=== PATIENT | male | born 1975 | race Caucasian/White ===

== ENCOUNTER 2017-01-24 18:47 | Emergency (ER) | payer OTHER ==
[~2017-01-24] VITALS: Ht 170.1 cm; Wt 88.5 kg
[~2017-01-24 18:47] MED LIST: AMOXICILLIN500 M2 PO; ZYRTEC10 MG PO
[2017-01-24] MEDS ORDERED: ROBITUSSIN AC 110 ML PO (20:04)
[2017-01-24] MEDS ORDERED: FLONASE ALLERG9.9 ML NAS (20:04)
[2017-01-24] MEDS ORDERED: CLARITIN10 MG PO (20:04)
[2017-01-24] MEDS ORDERED: PREDNISONE10 MG PO (20:04)
== END 2017-01-24 22:28 | disposition home or self-care (01) ==
LOC: ED 18:47
DX: B34.9 Viral infection, unspecified (principal); F17.200 Nicotine dependence, unspecified, uncomplicated; R03.0 Elevated blood-pressure reading, without diagnosis of hypertension; Z88.6 Allergy status to analgesic agent

== ENCOUNTER 2017-07-14 21:06 | Emergency (ER) | payer OTHER ==
[~2017-07-14] VITALS: Ht 172.7 cm; Wt 81.6 kg
[~2017-07-14 21:06] MED LIST changes: +CLARITIN10 MG PO; +FLONASE ALLERG9.9 ML NAS; +PREDNISONE10 MG PO; +ROBITUSSIN AC 110 ML PO
[2017-07-14] MEDS ORDERED: CEPHALEXIN500 M1 PO (23:02)
== END 2017-07-14 22:53 | disposition home or self-care (01) ==
LOC: ED 21:06
DX: S61.402A Unspecified open wound of left hand, initial encounter (principal); S61.002A Unspecified open wound of left thumb without damage to nail, initial encounter; F17.200 Nicotine dependence, unspecified, uncomplicated; Z79.899 Other long term (current) drug therapy; Z88.6 Allergy status to analgesic agent; W31.0XXA Contact with mining and earth-drilling machinery, initial encounter; Y93.89 Activity, other specified; Y92.89 Other specified places as the place of occurrence of the external cause; Y99.9 Unspecified external cause status

== ENCOUNTER 2018-08-09 16:43 | Emergency (ER) | payer OTHER ==
[~2018-08-09] VITALS: Ht 170.1 cm; Wt 77.1 kg
[~2018-08-09 16:43] MED LIST changes: +CEPHALEXIN500 M1 PO
[2018-08-09] MEDS ORDERED: SEPTDS PO (17:01)
[2018-08-09] MEDS ORDERED: BACTROBAN CREAM15 GM PO (17:01)
== END 2018-08-09 17:10 | disposition home or self-care (01) ==
LOC: ED 16:43
DX: L02.413 Cutaneous abscess of right upper limb (principal); L98.499 Non-pressure chronic ulcer of skin of other sites with unspecified severity; Z88.6 Allergy status to analgesic agent; Z79.2 Long term (current) use of antibiotics; Z79.899 Other long term (current) drug therapy

== ENCOUNTER 2018-10-14 18:15 | Emergency (ER) | payer OTHER ==
[~2018-10-14] VITALS: Wt 81.6 kg
[~2018-10-14 18:15] MED LIST changes: +BACTROBAN CREAM15 GM PO; +SEPTDS PO
== END 2018-10-14 19:02 | disposition home or self-care (01) ==
LOC: ED 18:15
DX: K40.90 Unilateral inguinal hernia, without obstruction or gangrene, not specified as recurrent (principal); Z88.6 Allergy status to analgesic agent

== ENCOUNTER 2019-07-21 18:56 | Emergency (ER) | payer OTHER ==
[~2019-07-21] VITALS: Ht 170.1 cm; Wt 77.1 kg
[2019-07-21] MEDS ORDERED: SEPTDS PO (19:42)
== END 2019-07-21 19:56 | disposition home or self-care (01) ==
LOC: ED 18:56
DX: L02.414 Cutaneous abscess of left upper limb (principal); L97.829 Non-pressure chronic ulcer of other part of left lower leg with unspecified severity; L08.89 Other specified local infections of the skin and subcutaneous tissue; Z88.6 Allergy status to analgesic agent

== ENCOUNTER 2019-10-13 15:34 | Emergency (ER) | payer OTHER ==
[~2019-10-13] VITALS: Ht 170.1 cm; Wt 68.0 kg
== END 2019-10-13 17:12 | disposition home or self-care (01) ==
LOC: ED 15:34
DX: T15.02XA Foreign body in cornea, left eye, initial encounter (principal); Z88.6 Allergy status to analgesic agent; X58.XXXA Exposure to other specified factors, initial encounter; Y93.89 Activity, other specified; Y92.59 Other trade areas as the place of occurrence of the external cause; Y99.0 Civilian activity done for income or pay

== ENCOUNTER 2021-04-05 23:45 | Emergency (ER) | payer SELFPAY ==
[~2021-04-05] VITALS: Ht 170.1 cm
[2021-04-06 00:18] LABS: BASO % 0.3 % (0.0-1.0); LYMPH # 2.5 10*3/uL (1.3-4.4); LYMPH % 26.5 % (27.0-41.0); MEAN CELL VOLUME 82.1 fl (80.0-94.0); MEAN CORPUSCULAR HGB 26.9 pg (27.0-31.0); MEAN CORPUSCULAR HGB CONC 32.8 g/dl (33.0-37.0); MEAN PLATELET VOLUME 9.8 fl (9.6-12.3); MONO # 0.8 10*3/uL (0.1-1.0); MONO % 8.3 % (3.0-9.0); NEUT % 64.6 % (47.0-73.0); PLATELET COUNT AUTOMATED 238 10*3/uL (130-400); RED BLOOD COUNT 5.24 10*6/uL (4.50-5.90); RED CELL DISTRI WIDTH 13.2 % (0-14.5); WHITE BLOOD COUNT 9.3 10*3/uL (4.8-10.8)
[2021-04-06 00:25] LABS: BUN 13 mg/dl (7-24); CHLORIDE 106 mmol/L (98-107); CREATININE 1.06 mg/dL (0.70-1.30); POTASSIUM 3.7 mmol/L (3.5-5.1); SODIUM 140 mmol/L (136-145)
[2021-04-06] MEDS ORDERED: CEPHALEXIN500 M1 PO (01:11)
[2021-04-06] MEDS ORDERED: SEPTDS PO (01:11)
== END 2021-04-06 02:04 | disposition home or self-care (01) ==
LOC: ED 23:45
PROVIDERS: Emergency Medicine
DX: M79.89 Other specified soft tissue disorders (principal); Z88.2 Allergy status to sulfonamides

== ENCOUNTER 2021-12-14 00:05 | Emergency (ER) | payer SELFPAY ==
[~2021-12-14] VITALS: Ht 170.1 cm; Wt 69.9 kg
[2021-12-14 01:00] LABS: BASO % 0.3 % (0.0-1.0); HEMATOCRIT 46.9 % (42.0-52.0); LYMPH # 1.7 10*3/uL (1.3-4.4); LYMPH % 14.9 % (27.0-41.0); MEAN CELL VOLUME 80.4 fl (80.0-94.0); MEAN CORPUSCULAR HGB 26.9 pg (27.0-31.0); MEAN CORPUSCULAR HGB CONC 33.5 g/dl (33.0-37.0); MEAN PLATELET VOLUME 9.5 fl (9.6-12.3); MONO # 0.9 10*3/uL (0.1-1.0); MONO % 7.8 % (3.0-9.0); NEUT # 8.6 10*3/uL (2.3-7.9); NEUT % 76.7 % (47.0-73.0); PLATELET COUNT AUTOMATED 218 10*3/uL (130-400); RED BLOOD COUNT 5.83 10*6/uL (4.50-5.90); RED CELL DISTRI WIDTH 13.5 % (0-14.5); WHITE BLOOD COUNT 11.2 10*3/uL (4.8-10.8)
[2021-12-14 01:17] LABS: ALBUMIN 4.4 gm/dl (3.1-4.5); ALKALINE PHOSPHATASE 71 U/L (45-117); BUN 14 mg/dl (7-24); CHLORIDE 104 mmol/L (98-107); POTASSIUM 3.8 mmol/L (3.5-5.1); SGOT/AST 21 IU/L (3-35); SGPT/ALT 39 U/L (12-78); SODIUM 137 mmol/L (136-145); TOTAL PROTEIN 7.9 gm/dL (6.4-8.2)
== END 2021-12-14 05:05 | disposition short-term general hospital (02) ==
LOC: ED 00:05
PROVIDERS: Emergency Medicine
DX: N13.2 Hydronephrosis with renal and ureteral calculous obstruction (principal); Z88.8 Allergy status to other drugs, medicaments and biological substances

== ENCOUNTER 2023-02-01 12:46 | Emergency (ER) | payer SELFPAY ==
[~2023-02-01] VITALS: Ht 170.1 cm; Wt 74.8 kg
== END 2023-02-01 13:57 | disposition home or self-care (01) ==
LOC: ED 12:46
DX: T15.92XA Foreign body on external eye, part unspecified, left eye, initial encounter (principal); Z88.8 Allergy status to other drugs, medicaments and biological substances; W22.8XXA Striking against or struck by other objects, initial encounter; Y93.89 Activity, other specified; Y92.89 Other specified places as the place of occurrence of the external cause; Y99.8 Other external cause status

== ENCOUNTER 2023-03-20 09:24 | Inpatient (IN) | payer MEDICAID ==
[~2023-03-20] VITALS: Ht 170.2 cm; Wt 71.9 kg
[2023-03-20 09:43] VITALS: BP 149/87
[2023-03-20 10:08] LABS: BASO # 0.1 10*3/uL (0.0-0.1); BASO % 0.6 % (0.0-1.0); EOS % 0.1 % (1.0-4.0); HEMATOCRIT 51.5 % (42.0-52.0); LYMPH # 1.8 10*3/uL (1.3-4.4); LYMPH % 21.8 % (27.0-41.0); MEAN CELL VOLUME 84.8 fl (80.0-94.0); MEAN CORPUSCULAR HGB 27.3 pg (27.0-31.0); MEAN CORPUSCULAR HGB CONC 32.2 g/dl (33.0-37.0); MEAN PLATELET VOLUME 9.8 fl (9.6-12.3); MONO # 0.5 10*3/uL (0.1-1.0); MONO % 5.6 % (3.0-9.0); NEUT # 5.9 10*3/uL (2.3-7.9); NEUT % 71.7 % (47.0-73.0); PLATELET COUNT AUTOMATED 203 10*3/uL (130-400); RED BLOOD COUNT 6.07 10*6/uL (4.50-5.90); RED CELL DISTRI WIDTH 13.2 % (0-14.5); WHITE BLOOD COUNT 8.2 10*3/uL (4.8-10.8)
[2023-03-20 10:19] LABS: ACT PARTIAL THROMBO TIME 27.1 SECONDS (20.0-32.1)
[2023-03-20 10:52] LABS: ALKALINE PHOSPHATASE 78 U/L (46-116); BUN 10 mg/dl (9-23); CHLORIDE 104 mmol/L (98-107); LIPASE 42 U/L (12-53); POTASSIUM 3.9 mmol/L (3.4-5.1); SGPT/ALT 34 U/L (10-49); TOTAL PROTEIN 7.5 gm/dL (6.0-8.0)
[2023-03-20 13:00] VITALS: BP 134/80
[2023-03-20 13:06] LABS: BILIRUBIN Negative (Negative); BLOOD Negative (Negative); CLARITY Clear (Clear); COLOR Yellow (Yellow); GLUCOSE Negative (Negative); KETONE Negative (Negative); LEUKO ESTERASE Negative (Negative); NITRITE Negative (Negative); UROBILINOGEN 0.2 E.U./dl (0.0-1.0)
[2023-03-20 13:13] LABS: URINE AMPHETAMINES Positive (1000ng/ml); URINE BARBITURATES Negative (200ng/ml); URINE BENZODIAZEPINES Negative (200ng/ml); URINE CANNABINOIDS (THC) Positive (50ng/ml); URINE COCAINE Negative (300ng/ml); URINE METHADONE Negative (300ng/ml); URINE OPIATES Negative (300ng/ml); URINE PHENCYCLIDINE Negative (25ng/ml)
[2023-03-20 13:44] LABS: RBC 0-2 rbc/hpf (0-2)
[2023-03-20 13:45] VITALS: BP 142/92
[2023-03-20 20:00] VITALS: BP 118/67
[2023-03-21] VITALS: BP 126/86
[2023-03-21 08:00] VITALS: BP 114/70
[2023-03-21 12:00] VITALS: BP 141/77
[2023-03-21 16:00] VITALS: BP 133/88
[2023-03-21 20:00] VITALS: BP 104/74
[2023-03-22] VITALS: BP 131/65
[2023-03-22 06:24] LABS: BASO # 0.1 10*3/uL (0.0-0.1); BASO % 0.6 % (0.0-1.0); HEMATOCRIT 47.1 % (42.0-52.0); LYMPH # 2.7 10*3/uL (1.3-4.4); MEAN CELL VOLUME 84.6 fl (80.0-94.0); MEAN CORPUSCULAR HGB CONC 33.1 g/dl (33.0-37.0); MEAN PLATELET VOLUME 9.8 fl (9.6-12.3); MONO # 0.8 10*3/uL (0.1-1.0); NEUT # 5.1 10*3/uL (2.3-7.9); NEUT % 58.9 % (47.0-73.0); PLATELET COUNT AUTOMATED 204 10*3/uL (130-400); RED BLOOD COUNT 5.57 10*6/uL (4.50-5.90); RED CELL DISTRI WIDTH 13.2 % (0-14.5); WHITE BLOOD COUNT 8.6 10*3/uL (4.8-10.8)
[2023-03-22 06:46] LABS: BUN 13 mg/dl (9-23); CHLORIDE 106 mmol/L (98-107); POTASSIUM 4.3 mmol/L (3.4-5.1)
[2023-03-22 08:00] VITALS: BP 129/89
[2023-03-22 12:00] VITALS: BP 134/75
== END 2023-03-22 12:45 | disposition left against medical advice (07) | DRG 770 ==
LOC: ED 09:24 → 4E 09:48 → EDHOLD 09:48 → 4E 12:50
PROVIDERS: Emergency Medicine; Student in an Organized Health Care Education/Training Program; ADMIT Internal Medicine; ATTEND Internal Medicine
DX: F15.23 Other stimulant dependence with withdrawal (principal); F41.9 Anxiety disorder, unspecified; G89.4 Chronic pain syndrome; Z53.29 Procedure and treatment not carried out because of patient's decision for other reasons; R73.9 Hyperglycemia, unspecified; Z79.899 Other long term (current) drug therapy; F19.90 Other psychoactive substance use, unspecified, uncomplicated

== ENCOUNTER 2023-10-19 04:26 | Emergency (ER) | payer MEDICAID ==
[~2023-10-19] VITALS: Ht 170.1 cm; Wt 88.5 kg
[2023-10-19] MEDS ORDERED: HYDR25T PO (04:53)
[2023-10-19] MEDS ORDERED: LISINOPRIL20 MG PO (04:54)
[2023-10-19 05:32] LABS: ALKALINE PHOSPHATASE 55 U/L (46-116); BUN 13 mg/dl (9-23); CHLORIDE 107 mmol/L (98-107); LIPASE 38 U/L (12-53); SGPT/ALT 92 U/L (5-49); TOTAL PROTEIN 6.6 gm/dL (6.0-8.0)
[2023-10-19 06:15] LABS: BASO # 0.1 10*3/uL (0.0-0.1); BASO % 0.9 % (0.0-1.0); EOS # 0.1 10*3/uL (0.0-0.4); EOS % 1.7 % (1.0-4.0); HEMATOCRIT 41.8 % (42.0-52.0); LYMPH # 2.2 10*3/uL (1.3-4.4); LYMPH % 37.7 % (27.0-41.0); MEAN CELL VOLUME 84.6 fl (80.0-94.0); MEAN CORPUSCULAR HGB 27.7 pg (27.0-31.0); MEAN CORPUSCULAR HGB CONC 32.8 g/dl (33.0-37.0); MEAN PLATELET VOLUME 10.1 fl (9.6-12.3); MONO # 0.7 10*3/uL (0.1-1.0); MONO % 12.2 % (3.0-9.0); NEUT # 2.7 10*3/uL (2.3-7.9); PLATELET COUNT AUTOMATED 198 10*3/uL (130-400); RED BLOOD COUNT 4.94 10*6/uL (4.50-5.90); RED CELL DISTRI WIDTH 13.1 % (0-14.5); WHITE BLOOD COUNT 5.8 10*3/uL (4.8-10.8)
[2023-10-19] MEDS ORDERED: COZAAR25 M1 PO (06:22)
== END 2023-10-19 06:50 | disposition home or self-care (01) ==
LOC: ED 04:26
PROVIDERS: Internal Medicine
DX: R05.9 Cough, unspecified (principal); R07.0 Pain in throat; T46.4X5A Adverse effect of angiotensin-converting-enzyme inhibitors, initial encounter; I10 Essential (primary) hypertension; F32.A Depression, unspecified; Z88.8 Allergy status to other drugs, medicaments and biological substances; Z98.890 Other specified postprocedural states; Y92.89 Other specified places as the place of occurrence of the external cause

== ENCOUNTER 2024-05-30 10:36 | Emergency (ER) | payer MEDICAID ==
[~2024-05-30] VITALS: Ht 170.1 cm; Wt 88.5 kg
[~2024-05-30 10:36] MED LIST changes: +COZAAR25 M1 PO; +HYDR25T PO; +LISINOPRIL20 MG PO
[2024-05-30] MEDS ORDERED: AMLODIPINE BESYL5 MG PO (10:51)
[2024-05-30] MEDS ORDERED: SODIUM CHLORIDE 0.9% 1,000 ML IV ONE (11:15)
[2024-05-30 11:34] LABS: BASO # 0.1 10*3/uL (0.0-0.1); BASO % 0.9 % (0.0-1.0); EOS # 0.2 10*3/uL (0.0-0.4); EOS % 2.3 % (1.0-4.0); HEMATOCRIT 47.6 % (42.0-52.0); LYMPH # 2.3 10*3/uL (1.3-4.4); LYMPH % 35.3 % (27.0-41.0); MEAN CELL VOLUME 80.3 fl (80.0-94.0); MEAN CORPUSCULAR HGB 27.7 pg (27.0-31.0); MEAN CORPUSCULAR HGB CONC 34.5 g/dl (33.0-37.0); MEAN PLATELET VOLUME 10.9 fl (9.6-12.3); MONO # 0.6 10*3/uL (0.1-1.0); MONO % 8.4 % (3.0-9.0); NEUT # 3.4 10*3/uL (2.3-7.9); NEUT % 52.5 % (47.0-73.0); PLATELET COUNT AUTOMATED 173 10*3/uL (130-400); RED BLOOD COUNT 5.93 10*6/uL (4.50-5.90); RED CELL DISTRI WIDTH 12.7 % (0-14.5); WHITE BLOOD COUNT 6.5 10*3/uL (4.8-10.8)
[2024-05-30 11:59] LABS: ALKALINE PHOSPHATASE 108 U/L (46-116); BUN 13 mg/dl (9-23); CHLORIDE 100 mmol/L (98-107); LIPASE 92 U/L (12-53); POTASSIUM 3.7 mmol/L (3.4-5.1); SGPT/ALT 125 U/L (5-49); TOTAL PROTEIN 7.3 gm/dL (6.0-8.0)
[2024-05-30] MEDS ORDERED: METFORMIN HYDR500 MG PO (12:15)
== END 2024-05-30 13:29 | disposition home or self-care (01) ==
LOC: ED 10:36
PROVIDERS: Emergency Medicine
DX: E11.65 Type 2 diabetes mellitus with hyperglycemia (principal); R51.9 Headache, unspecified; H53.8 Other visual disturbances; R53.1 Weakness; R35.89 Other polyuria; Z88.6 Allergy status to analgesic agent; Z79.899 Other long term (current) drug therapy; Z98.890 Other specified postprocedural states

== ENCOUNTER 2024-05-30 16:43 | Inpatient (IN) | payer MEDICAID ==
[~2024-05-30] VITALS: Ht 170.1 cm; Wt 82.3 kg
[2024-05-30 16:00] VITALS: BP 126/59
[~2024-05-30 16:43] MED LIST changes: +AMLODIPINE BESYL5 MG PO; +METFORMIN HYDR500 MG PO
[2024-05-30 16:59] VITALS: BP 132/88
[2024-05-30 17:58] LABS: BUN 15 mg/dl (9-23); CHLORIDE 100 mmol/L (98-107); POTASSIUM 3.7 mmol/L (3.4-5.1)
[2024-05-30] MEDS ORDERED: SODIUM CHLORIDE 0.9% 1,000 ML IV ONE ×2 (18:20→21:15)
[2024-05-30] MEDS ORDERED: INSULIN REGULAR, HUMAN 1 UNIT/0.01 ML IV ONE (18:20)
[2024-05-30] MEDS ORDERED: ACETAMINOPHEN 650 MG SUPP R PRN (21:10)
[2024-05-30] MEDS ORDERED: ACETAMINOPHEN 325 MG TAB PO PRN (21:10)
[2024-05-30] MEDS ORDERED: BISACODYL 5 MG TAB PO PRN (21:10)
[2024-05-30] MEDS ORDERED: TEMAZEPAM 15 MG CAP PO PRN (21:10)
[2024-05-30] MEDS ORDERED: Ondansetron Hydrochloride 4 MG/2 ML VIAL IV PRN (21:10)
[2024-05-30] MEDS ORDERED: MORPHINE Sulfate 2 MG/ML SYR IV PRN (21:10)
[2024-05-30] MEDS ORDERED: Acetaminophen/Hydrocodone 5 MG/325 MG TABLET PO PRN (21:10)
[2024-05-30] MEDS ORDERED: BISACODYL 10 MG SUPP R PRN (21:10)
[2024-05-30] MEDS ORDERED: Magnesium Hydroxide 30 ML UDC PO PRN (21:10)
[2024-05-30] MEDS ORDERED: DEXTROSE 10 % IN WATER 250 ML IV PRN (21:15)
[2024-05-30] MEDS ORDERED: INSULIN LISPRO 1 UNIT/0.01 ML SQ SCH (22:00)
[2024-05-30] MEDS ORDERED: Insulin Glargine, Recombinan 1 UNIT/0.01 ML SC SCH (22:00)
[2024-05-30 23:58] VITALS: BP 135/72
[2024-05-31 05:48] VITALS: BP 107/72
[2024-05-31 06:11] LABS: ALKALINE PHOSPHATASE 76 U/L (46-116); BUN 11 mg/dl (9-23); CHLORIDE 107 mmol/L (98-107); CHOLESTEROL 135 mg/dL (<200); FREE T4 1.35 ng/dl (0.89-1.76); POTASSIUM 3.5 mmol/L (3.4-5.1); SGPT/ALT 97 U/L (5-49); TOTAL PROTEIN 5.7 gm/dL (6.0-8.0); TRIGLYCERIDES 411 mg/dl (<150)
[2024-05-31 06:14] LABS: ACT PARTIAL THROMBO TIME 24.2 SECONDS (20.0-32.1)
[2024-05-31 06:31] LABS: BASO % 0.5 % (0.0-1.0); EOS # 0.2 10*3/uL (0.0-0.4); EOS % 2.4 % (1.0-4.0); HEMATOCRIT 41.4 % (42.0-52.0); LYMPH # 2.6 10*3/uL (1.3-4.4); LYMPH % 41.8 % (27.0-41.0); MEAN CELL VOLUME 83.8 fl (80.0-94.0); MEAN CORPUSCULAR HGB 27.9 pg (27.0-31.0); MEAN CORPUSCULAR HGB CONC 33.3 g/dl (33.0-37.0); MEAN PLATELET VOLUME 10.8 fl (9.6-12.3); MONO # 0.5 10*3/uL (0.1-1.0); MONO % 8.1 % (3.0-9.0); NEUT % 46.7 % (47.0-73.0); PLATELET COUNT AUTOMATED 140 10*3/uL (130-400); RED BLOOD COUNT 4.94 10*6/uL (4.50-5.90); WHITE BLOOD COUNT 6.3 10*3/uL (4.8-10.8)
[2024-05-31 08:53] LABS: VITAMIN D, 25-HYDROXY 34.2 ng/mL (30-100)
[2024-05-31] MEDS ORDERED: Enoxaparin Sodium 40 MG/0.4 ML SYR SC SCH (10:00)
[2024-05-31 12:15] LABS: BILIRUBIN Negative (Negative); BLOOD Negative (Negative); CLARITY Clear (Clear); COLOR Yellow (Yellow); GLUCOSE 3+ (Negative); KETONE Trace (Negative); LEUKO ESTERASE Negative (Negative); NITRITE Negative (Negative); PH 6.5 (4.5-8.0); UROBILINOGEN 0.2 E.U./dl (0.0-1.0)
[2024-05-31 12:41] LABS: EPITHELIAL CELLS 0-2; WBC 0-2 wbc/hpf (0-5)
[2024-06-01 06:40] LABS: BASO % 0.7 % (0.0-1.0); EOS # 0.1 10*3/uL (0.0-0.4); EOS % 1.1 % (1.0-4.0); HEMATOCRIT 42.8 % (42.0-52.0); LYMPH # 2.2 10*3/uL (1.3-4.4); LYMPH % 39.3 % (27.0-41.0); MEAN CELL VOLUME 83.1 fl (80.0-94.0); MEAN CORPUSCULAR HGB 27.4 pg (27.0-31.0); MEAN CORPUSCULAR HGB CONC 32.9 g/dl (33.0-37.0); MEAN PLATELET VOLUME 11.1 fl (9.6-12.3); MONO # 0.6 10*3/uL (0.1-1.0); MONO % 10.2 % (3.0-9.0); NEUT # 2.7 10*3/uL (2.3-7.9); PLATELET COUNT AUTOMATED 143 10*3/uL (130-400); RED BLOOD COUNT 5.15 10*6/uL (4.50-5.90); RED CELL DISTRI WIDTH 12.9 % (0-14.5); WHITE BLOOD COUNT 5.7 10*3/uL (4.8-10.8)
[2024-06-01 07:08] LABS: ALKALINE PHOSPHATASE 76 U/L (46-116); BUN 10 mg/dl (9-23); CHLORIDE 106 mmol/L (98-107); POTASSIUM 3.5 mmol/L (3.4-5.1); SGPT/ALT 118 U/L (5-49); TOTAL PROTEIN 6.2 gm/dL (6.0-8.0)
[2024-06-01 08:00] VITALS: BP 114/72
[2024-06-01] MEDS ORDERED: ATORVASTATIN CALCIUM 40 MG TABLET PO SCH (10:00)
[2024-06-01] MEDS ORDERED: Fish Oil 1,000 MG CAP PO SCH (10:00)
[2024-06-01] MEDS ORDERED: SODIUM CHLORIDE 0.9% 1,000 ML IV ONE (11:40)
[2024-06-01 12:00] VITALS: BP 123/80
[2024-06-01 16:00] VITALS: BP 126/59
[2024-06-01 20:30] VITALS: BP 129/86
[2024-06-01 21:30] VITALS: BP 136/98
[2024-06-01] MEDS ORDERED: Insulin Glargine, Recombinan 1 UNIT/0.01 ML SC SCH (22:00)
[2024-06-02] VITALS: BP 137/93
[2024-06-02 04:42] LABS: ALKALINE PHOSPHATASE 72 U/L (46-116); BUN 10 mg/dl (9-23); CHLORIDE 106 mmol/L (98-107); POTASSIUM 3.5 mmol/L (3.4-5.1); SGPT/ALT 160 U/L (5-49); TOTAL PROTEIN 6.3 gm/dL (6.0-8.0)
[2024-06-02 08:00] VITALS: BP 128/78
[2024-06-02] MEDS ORDERED: Humalog SQ (08:06)
[2024-06-02] MEDS ORDERED: LANTUS100 UNIT/1 SC (08:06)
[2024-06-02] MEDS ORDERED: HUMALOG100 UNIT/1 SQ (08:06)
[2024-06-02] MEDS ORDERED: amLODIPine besylate 5 MG TAB PO SCH (10:00)
[2024-06-03 05:07] LABS: HBSAG Negative (Negative); HEP B CORE AB, IGM Negative (Negative); HEPATITIS C ANTIBODY Non Reactive (Non Reactive)
== END 2024-06-02 09:20 | disposition home or self-care (01) | DRG 420 ==
LOC: ED 16:43 → EDHOLD 18:27 → 4E 06-01 10:57 → EDHOLD 06-01 10:57 → 4E 06-01 10:57
PROVIDERS: Internal Medicine; Physician Assistant Medical; Student in an Organized Health Care Education/Training Program; ADMIT Student in an Organized Health Care Education/Training Program; ATTEND Student in an Organized Health Care Education/Training Program
DX: E11.65 Type 2 diabetes mellitus with hyperglycemia (principal); E87.1 Hypo-osmolality and hyponatremia; E44.0 Moderate protein-calorie malnutrition; D64.9 Anemia, unspecified; I10 Essential (primary) hypertension; G44.201 Tension-type headache, unspecified, intractable; F17.210 Nicotine dependence, cigarettes, uncomplicated; Z79.899 Other long term (current) drug therapy; Z88.8 Allergy status to other drugs, medicaments and biological substances; Z68.28 Body mass index [BMI] 28.0-28.9, adult; Z91.09 Other allergy status, other than to drugs and biological substances; Z79.01 Long term (current) use of anticoagulants; Z82.49 Family history of ischemic heart disease and other diseases of the circulatory system; Z71.6 Tobacco abuse counseling

== ENCOUNTER → 2024-09-07 | Outpatient (CLI) | payer MEDICAID ==
[~2024-09-07] MED LIST changes: +HUMALOG100 UNIT/1 SQ; +Humalog SQ; +LANTUS100 UNIT/1 SC
[2024-09-07 12:16] LABS: ALKALINE PHOSPHATASE 61 U/L (46-116); BUN 16 mg/dl (9-23); CHLORIDE 105 mmol/L (98-107); POTASSIUM 3.7 mmol/L (3.4-5.1); SGPT/ALT 41 U/L (5-49); TOTAL PROTEIN 7.7 gm/dL (6.0-8.0)
== END | disposition home or self-care (01) ==
LOC: LAB 11:26
PROVIDERS: ATTEND Student in an Organized Health Care Education/Training Program
DX: E83.52 Hypercalcemia (principal); R74.01 Elevation of levels of liver transaminase levels